=== PATIENT | female | born 1950 | race Caucasian/White ===

== ENCOUNTER 2019-01-04 11:44 | Emergency (ER) | payer OTHER ==
[2019-01-04 12:03] VITALS: BMI 29.7
--- NOTE | 2019-01-04 12:28 | PDOC ---
History of Present Illness - General Chief Complaint: Chest Pain Stated Complaint: CHEST PAIN Time Seen by Provider: 01/04/19 12:16 - History of Present Illness Initial Comments: 01/04/19 13:20 68F with pmh of asthma, HLD, GERD, benign gastric tumor removal and anxiety presents with chest tightness, shortness of breath and tingling down the left arm waking her up in the middle of the night for the past 3 days. She states he pain was worsening over the past few days and now appears even when shes not lying down. She also states that her ankles sometime swell but that's a chronic condition. No recent echo done. PCP: Dr. Abreu. Past History - Past Medical History Allergies/Adverse Reactions: Allergies Allergy/AdvReac Type Severity Reaction Status Date / Time No Known Allergies Allergy Verified 01/04/19 12:03 Asthma: Yes Cancer: Yes (tumor removal stomach) COPD: No Diabetes: Yes - Suicide/Smoking/Psychosocial Hx Smoking History: Unknown if ever smoked Have you smoked in the past 12 months: No Information on smoking cessation initiated: No Hx Alcohol Use: No Drug/Substance Use Hx: No Review of Systems - Review of Systems Able to Perform ROS?: Yes Is the patient limited Jamaican proficient: No Constitutional: No: Symptoms Reported HEENTM: No: Symptoms Reported Respiratory: Yes: See HPI, Shortness of Breath Cardiac (ROS): Yes: See HPI, Chest Tightness ABD/GI: No: Symptoms Reported : No: Symptoms Reported Musculoskeletal: No: Symptoms Reported Integumentary: No: Symptoms Reported Neurological: No: Symptoms reported All Other Systems: Reviewed and Negative *Physical Exam - Vital Signs Last Vital Signs Temp Pulse Resp BP Pulse Ox 97.0 F L 73 16 148/63 100 01/04/19 11:44 01/04/19 11:44 01/04/19 11:44 01/04/19 11:44 01/04/19 11:44 - Physical Exam General Appearance: Yes: Obese HEENT: positive: EOMI, SOTO, Normal ENT Inspection Respiratory/Chest: positive: Lungs Clear, Normal Breath Sounds. negative: Chest Tender, Respiratory Distress Cardiovascular: positive: Regular Rhythm, Regular Rate, S1, S2 Gastrointestinal/Abdominal: positive: Normal Bowel Sounds, Flat, Soft. negative : Tender Musculoskeletal: positive: Normal Inspection Extremity: positive: Normal Capillary Refill, Normal Inspection, Normal Range of Motion Neurologic: positive: Fully Oriented, Alert, Normal Mood/Affect Moderate Sedation - Procedure Monitoring Vital Signs: Procedure Monitoring Vital Signs Temperature 97.0 F L 01/04/19 11:44 Pulse Rate 73 01/04/19 11:44 Respiratory Rate 16 01/04/19 11:44 Blood Pressure 148/63 01/04/19 11:44 O2 Sat by Pulse Oximetry (%) 100 01/04/19 11:44 ED Treatment Course - LABORATORY CBC & Chemistry Diagram: 01/04/19 12:45 01/04/19 12:45 - RADIOLOGY Radiology Studies Ordered: Category Date Time Status CHEST PA & LAT [RAD] Stat Radiology 01/04/19 12:26 Ordered Medical Decision Making - Medical Decision Making 01/04/19 13:46 68f with chest tightness and sob. OR vs acute chf vs anxiety 01/04/19 19:48 All labs WNL, Normal vitals CT abd/pelvis showing possible neoplasm of the lung. Will discharge with follow up. *DC/Admit/Observation/Transfer Diagnosis at time of Disposition: Chest tightness - Discharge Dispostion Disposition: HOME Condition at time of disposition: Improved Decision to Admit order: No - Referrals Referrals: Porfirio Abreu [Primary Care Provider] - - Patient Instructions Printed Discharge Instructions: DI for Atypical Chest Pain Additional Instructions: Come back to the ER for any new, worsening or concerning symptoms. There were abnormal findings in your Ct scan. Please follow up with your primary physician within the week. - Post Discharge Activity
--- NOTE | 2019-01-04 12:40 | EKG ---
Test Reason : Blood Pressure : / mmHG Vent. Rate : 072 BPM Atrial Rate : 072 BPM P-R Int : 118 ms QRS Dur : 092 ms QT Int : 404 ms P-R-T Axes : 032 043 062 degrees QTc Int : 442 ms NORMAL SINUS RHYTHM LOW VOLTAGE QRS NO PREVIOUS ECGS AVAILABLE Confirmed by JERICHO TAN MD ([id number]) on 01/04/2019 12:40:27 PM Referred By: Confirmed By:JERICHO TAN MD
[2019-01-04 13:26] LABS: BASO % 1.3 % (0-2.0); EOS % 5.3 % (0-4.5); HEMOGLOBIN 13.6 GM/dL (10.7-15.3); LYMPH % 26.9 % (8-40); MEAN PLT VOLUME 10.1 fl (7.5-11.1); MONO % 12.5 % (3.8-10.2); PLATELET COUNT 210 K/MM3 (134-434); RBC 4.12 M/mm3 (3.60-5.2); WHITE BLOOD COUNT 5.5 K/mm3 (4.0-10.0)
[2019-01-04 14:09] LABS: ALBUMIN 3.9 g/dl (3.4-5.0); ALK PHOS 86 U/L (45-117); ANION GAP 6 MMOL/L (8-16); BILIRUBIN,TOTAL 0.4 mg/dL (0.2-1); BLOOD UREA NITROGEN 13 mg/dL (7-18); CALCIUM 9.7 mg/dL (8.5-10.1); CHLORIDE 110 mmol/L (98-107); CO2 28 mmol/L (21-32); CREATININE 0.9 mg/dL (0.55-1.3); GLUCOSE,RANDOM 90 mg/dL (74-106); N-TERMINAL BNP 61.7 pg/ml (5-125); POTASSIUM 5.1 mmol/L (3.5-5.1); SGOT/AST 23 U/L (15-37); SGPT/ALT 25 U/L (13-61); SODIUM 145 mmol/L (136-145); TOT PROT 7.4 g/dl (6.4-8.2)
[2019-01-04 15:44] LABS: LIPASE 151 U/L (73-393)
--- NOTE | 2019-01-04 15:56 | PDOC ---
Attending Attestation - Resident Resident Name: Susana Sanders - ED Attending Attestation I have performed the following: I have examined & evaluated the patient, The case was reviewed & discussed with the resident, I agree w/resident's findings & plan, Exceptions are as noted - HPI HPI: 01/04/19 15:49 The patient is a 68 year old female, with a past medical history of GERD, HLD, anxiety, GIST s/p resection, and asthma, who presents to the emergency department with several months of chest pressure when lying down at night. Over the past few days, she states that she notices it sometimes when standing. She states that the pain comes and goes randomly, without any exacerbating or alleviating factors. She describes her pain as just below the sternum, near where the tumor was removed. At time of interview, pt denies any symptoms whatsoever. She denies any palpitations or diaphoresis. She denies recent fevers, chills, headache or dizziness. She denies recent nausea, vomit, diarrhea or constipation. She denies recent dysuria, frequency, urgency or hematuria. Allergies: NKDA Past surgical history: Benign tumor resection of the stomach. Social history: Nonsmoker. Denies EtOH use and recreational drug use. Primary Care Physician: Dr. Porfirio Abreu - Physicial Exam PE: 01/04/19 15:56 "GENERAL: Awake, alert, and fully oriented, in no acute distress. HEAD: No signs of trauma EYES: PERRLA, EOMI, sclera anicteric, conjunctiva clear ENT: Auricles normal inspection, hearing grossly normal, nares patent, oropharynx clear without exudates. Moist mucosa NECK: Nontender, no stepoffs, Normal ROM, supple, no lymphadenopathy, JVD, or masses LUNGS: Breath sounds equal, clear to auscultation bilaterally. No wheezes, and no crackles HEART: Regular rate and rhythm, normal S1 and S2, no murmurs, rubs or gallops ABDOMEN: Soft, nontender, normoactive bowel sounds. No guarding, no rebound. No masses EXTREMITIES: Normal range of motion, no edema. No clubbing or cyanosis. No cords, erythema, or tenderness NEUROLOGICAL: Cranial nerves II through XII intact. 5/5 strength and sensation in all extremities, Normal speech, normal gait, normal cerebellar function SKIN: Warm, Dry, normal turgor, no rashes or lesions noted. - Medical Decision Making 01/04/19 15:56 68 F with chest pressure worsened with lying down. Pt with nonischemic EKG and very atypical story for ACS. Pt with no obstructive symptoms but states that the pain is where her GIST tumor used to be before it was removed. - Labs, tropx2 - CXR - CTAP to evaluate for mass Labs wnl Trop neg x 2 CT shows no new mass, stable lung nodule Pt is well appearing, with normal vitals. Clinically stable for DC at this time. I discussed the physical exam findings, ancillary test results and final diagnoses with the patient. I answered all of the patient's questions. The patient was satisfied with the care received and felt comfortable with the discharge plan and treatment plan. The patient agrees to follow up with the primary care physician within 24-72 hours.
[2019-01-04 18:43] VITALS: BP 139/78; PULSE 78; TEMP 98.5
== END 2019-01-04 20:22 | disposition home or self-care (01) ==
LOC: JER 11:44
DX: R07.89 Other chest pain (principal); J45.909 Unspecified asthma, uncomplicated; E78.5 Hyperlipidemia, unspecified; K21.9 Gastro-esophageal reflux disease without esophagitis; F41.9 Anxiety disorder, unspecified; Z87.19 Personal history of other diseases of the digestive system
CPT/HCPCS: 36415; 71046-TC-FY; 74177-TC; 80053; 83690; 83880; 84484; 85025; 93005; 93010; 99283-25